=== PATIENT | female | born 1930 | race Hispanic/Latino ===

== ENCOUNTER 2017-02-25 13:52 | Emergency (ER) | payer SELFPAY ==
[2017-02-25] MEDS ORDERED: Fentanyl 100 MCG/2 ML VIAL ONE ×2 (14:05→14:15)
--- NOTE | 2017-02-25 18:33 | RAD ---
RIGHT SHOULDER THREE VIEWS 02/25/17 An anterior inferior dislocation of the humeral head is present. No fracture was detected. The AC karissa int is normal in width. IMPRESSION: Anterior dislocation of the humeral head. POS: HOME
== END 2017-02-25 14:52 | disposition home or self-care (01) ==
LOC: BURERS 13:52
DX: S43.014A Anterior dislocation of right humerus, initial encounter (principal); I10 Essential (primary) hypertension; W01.0XXA Fall on same level from slipping, tripping and stumbling without subsequent striking against object, initial encounter
CPT/HCPCS: 23650; J3010